=== PATIENT | female | born 1975 | race Caucasian/White ===

== ENCOUNTER 2022-09-11 10:28 | Outpatient (CLI) | payer BC, SELFPAY ==
--- NOTE | 2022-09-11 10:45 | CRLHL7_ITS ---
For Patients: As a result of the Century Cures Act, medical imaging exams and procedure reports are released immediately into your electronic medical record. You may view this report before your referring provider. If you have questions, please contact your health care provider. BILATERAL SCREENING MAMMOGRAM WITH COMPUTER-AIDED DETECTION AND TOMOSYNTHESIS TECHNIQUE: CC and MLO views were obtained. These mammographic images have been obtained using full-field digital technique. These mammographic images were interpreted with the benefit of computer-aided detection. Breast tomosynthesis was used in this interpretation. COMPARISON FILM: 09/23/20, 02/27/19, 06/21/17. FINDINGS: The breasts are extremely dense, which lowers the sensitivity of mammography. IMPRESSION: There is no radiographic evidence for malignancy. ASSESSMENT: BI-RADS Category 2: Benign RECOMMENDATION: Routine screening mammogram in 1 year. A lay language report of this examination will be provided to the patient. NICOLÁS REYNA M.D. Diagnostic Radiologist [email or web address] PRANAY/[email or web address] Transcribed: 09/11/2022, 5:[address]/Dictated by: Nicolás Reyna MD @ 09/11/2022 11:20:00 AM (Electronically Signed)
== END 2022-09-11 10:29 | disposition home or self-care (01) ==
LOC: MAMMO 10:29
PROVIDERS: PCP Physician Assistant Medical; Visit Provider Emergency Medicine
DX: Z12.31 Encounter for screening mammogram for malignant neoplasm of breast (principal); R92.2 Inconclusive mammogram
CPT/HCPCS: 77063; 77067

== ENCOUNTER 2023-07-25 07:45 | Outpatient (CLI) | payer BC, SELFPAY | END 2023-07-25 07:46 | disposition home or self-care (01) | LOC: NFLDREF 07-26 06:56 | PROVIDERS: PCP Physician Assistant Medical; Referring Provider Physician Assistant Medical; Visit Provider Physician Assistant Medical | DX: Z00.00 Encounter for general adult medical examination without abnormal findings (principal); Z13.9 Encounter for screening, unspecified; Z13.6 Encounter for screening for cardiovascular disorders; Z13.29 Encounter for screening for other suspected endocrine disorder | CPT/HCPCS: 80053; 80061; 84443 ==

== ENCOUNTER 2024-10-15 09:17 | Outpatient (CLI) | payer BC, SELFPAY ==
[2024-10-22 16:27] LABS: HPV Source Cervical/Vag; HPV, High Risk by TMA Not Detected
== END 2024-10-15 09:18 | disposition home or self-care (01) ==
PROVIDERS: PCP Physician Assistant Medical; Visit Provider Physician Assistant Medical
DX: Z12.4 Encounter for screening for malignant neoplasm of cervix (principal); Z11.51 Encounter for screening for human papillomavirus (HPV)
CPT/HCPCS: 87624; 87625; 88141; 88142

== ENCOUNTER 2024-12-08 07:16 | Outpatient (CLI) | payer BC, SELFPAY ==
--- OUTSIDE RECORDS SUMMARY | 2024-12-08 07:24 | XMS_ITS | Clinical Summary ---
Author Organization [facility] Address [address] [place] [address] Care Team Providers Care Business Services Vice President Name Role Phone No Contact, Pcp Primary Care Provider Unavailabl e Source Comments Patient records contain information from all sites at [facility]. For routine questions regarding patient records, call [phone] during business hours, M-F 8:00 AM - 5:00 PM Central Time. Record requests for emergency care only can be directed to [phone] at any time.[facility] Allergies Active Allergy Reactions Criticality Noted Date Comments Amoxicillin Rash 04/26/2017 Medications azithromycin (Zithromax) 500 mg tablet Take 1 tablet (500 mg total) by mouth daily as needed (traveler's diarrhea). Take for 1 to 3 days as needed. May stop if diarrhea stops 3 tablet 10/10/2023 5:06 PM CDT 10/09/2023 Active atovaquone-prog uaniL (Malarone) 250-100 mg per tablet Take 1 tablet by mouth daily. Take WITH food. Start 2 days before entering malaria endemic region ([facility]), while there & for 7 days after leaving. 12 tablet 10/10/2023 5:06 PM CDT 10/09/2023 Active Typhoid oral [address] capsule Take 1 capsule by mouth every other day. Take on an empty stomach with cool water. Keep refrigerated. Call if taking antibiotic. Finish 14 days before trip 4 capsule 10/10/2023 5:06 PM CDT 10/09/2023 Active metroNIDAZOLE (MetroCream) 0.75 % cream Apply to face at bedtime. 45 g 11 11/10/2024 3:48 PM CDT 08/13/2024 Active polyethylene glycol-electrol aniceto (Gisela) 236-22.74-6.74 -5.86 gram solution 240 mL orally every 10 minutes; until fecal effluent is clear 4000 mL 11/03/2024 Active Immunizations Immunization Administration Dates Next Due HepA Adult 10/09/2023 HepB Adult 07/11/1993,01/08/1993,12/08/1992 Influenza, Seasonal, Injectable 04/22/20 06,04/12/2005,04/11/2004,2001 MMR 06/19/1993,07/01/1978 SARS-COV-2 (COVID-19) - MODERNA(Discontinued) 05/12/2021 SARS-COV-2 (COVID-19) - PFIZ ER (Discontinued)(12 years or older) 07/04/2020,06/13/2020 SARS-COV-2 (COVID-19) - PFIZ ER BIVALENT TS(Discontinued)(12 YEARS OR OLDER) 03/27/2022 Td (Adult), adsorbed 06/19/1993 Tdap 04/26/2017,04/12/2005 Ty21a (oral) 10/09/2023 influenza trivalent vaccine (6 months and older)(PF) 03/19/2024,04/07/2013,03/27/2012,2010,04/12/2010,03/11/2009,05/04/2008,1 06/22/2006 influenza vaccine quad (FLUZONE/FLUARIX) (6 months and older)(PF) 03/18/2023,03/27/2022,03/22/2021,2019,03/17/2019,04/01/2018 Social History Tobacco Use Types Packs/Day Years Used Date Smoking Tobacco: Never [facility] Utilities Answer Date Recorded In the past 12 months has e [employer], gas, oil, or water [employer] threatened to shut off services in your home? No 10/07/2023 Hunger Vital Sign Answer Date Recorded Within the past 12 months, y ou worried that your food would run out before you got the money to buy more. Never true 10/07/19 24 Within the past 12 months, t he food you bought just didn't last and you didn't have money to get more. Never true 10/07/2023 PRAPARE - Transportation Answer Date Re corded In the past 12 months, has l ack of transportation kept you from medical appointments or from getting medications? No 09/09 In the past 12 months, has l ack of transportation kept you from meetings, work, or from getting things needed for daily living? No 10/07/2023 Housing Stability Answer Date Recorded What is your living situation today? [facility] a [facility] place to live 10/07/2023 Comments Unknown Sex and Gender Information Value Date Recorded Sex Assigned at Female 10/07/2023 9:56 PM CDT Legal Sex Female 11:13 PM [employer] Gender Identity Female 10/07/2023 9:56 PM CDT Sexual Orientation Straight 10/07/2023 9: 56 PM CDT Last Filed Vital Signs Vital Sign Reading Time Taken Comments Blood Pressure 102/68 04/23/2013 1:24 PM [employer] Pulse 70 04/23/2013 1:24 PM [employer] [employer] Temperature 36.4 C (97.5 F) 10/09/2023 10:43 AM CDT Respiratory Rate - - Oxygen Saturation - - Inhaled Oxygen Concentration - - Weight 52.8 kg (116 lb 6.5 oz) 04/23/2013 1:24 P M [employer] Height 159 cm (5' 2.6) 10/09/2023 10:43 AM CDT Body Mass Index 21.56 04/23/2013 1:24 PM [employer] [employer] Plan of Treatment Health Maintenance Due Date Last Done Comments CT Colonography 1977 Cologuard 1977 Colonoscopy 1977 Colorectal Cancer Screening 1977 FIT 1977 Hepatitis C Screening 1977 Mammogram 1977 Cervical/Vaginal Cancer Screening 04/12/2013 04/12/2010, 05/09/2007, 10/10/2004, Additional history exists Fasting Glucose for Diabetes Screening 04/21/2015 04/21/2012 Lipid (Cholesterol) Screening 04/21/2017 04/21/2012 COVID-19 Vaccine ( season) 2024 03/27/2022, 05/12/2021, 07/04/2020, Additional history exists Hepatitis A Vaccines (2 of 2 - Risk 2-dose series) 04/10/2024 10/09/2023 Depression Screening (Annual PHQ-2) 06/10/2024 DTaP,Tdap,and Td Vaccines (4 - Td or Tdap) 04/26/2027 04/26/2017, 04/12/2005, 06/19/1993 Hepatitis B Vaccines Completed 07/11/1993, 01/08/1993, 12/08/1992 HIV Screening Completed 05/25/2007 Influenza Vaccine Completed 03/19/2024, , 03/27/2022, Additional history exists IPV Vaccines Aged Out No longer eligi ble based on patient's age to complete this topic Pneumococcal vaccine (0-49 years) Aged Out No longer eligible based on patient's age to complete this topic Procedures Procedure Name Priority Date/Time Associated Diagnosis Comments GLUCOSE, FASTING, S/P Routine 04/21/2012 10:44 AM [facility] LIPID PANEL, S Routine 04/21/2012 10:[address] [facility] [address] SQL DEVELOPER CYTOLOGY Routine 04/12/2010 1:12 PM CDT from Last 3 Months or Most Recently Relevant to Health Maintenance Results * Lipid Panel (04/21/2012 10:44 AM [employer] [employer]) Cholesterol, HDL, S 63 SeeComment MG/DL [facility] Comment: Reference Range: NCEP guidelines (ages 18y and up) Low: <40 Normal: 40-59 High : > or =60 Calculated LDL 126 SeeComment MG/DL [facility] Comment: Reference Range: NCEP guidelines (ages 18y and up) Optimal: <100 Near Optimal: 100-129 Borderline high: 130-159 High: 160-189 Very high: > or =190 Cholesterol, Total 212 SeeComment MG/DL [facility] Comment: Reference Range: NCEP guidelines (ages 18y and up) Desirable: <200 Borderline high: 200-239 High: > or =240 Triglycerides 116 SeeComment MG/DL [facility] Comment: Reference Range: NCEP guidelines (ages 18y and up) Normal: <150 Borderline high: 150-199 High: 200-499 Very high: > or =500 Cholesterol, Non-HDL, Calculated 149 SeeComment MG/DL [facility] Comment: Reference Range: NCEP guidelines Desirable: <130 Borderline high: 130-159 High: 160-189 Very high: > or =190 04/21/2012 10:4 4 AM [facility] 04/21/2012 10:44 AM [facility] [employer] Rich Ramirez APRN.N.Jt., M.S.N. LAB BLOO D ADD-ON Final Result Performing Organization Address City/[facility]/ZIP Co de Phone Number [facility] [address] * Glucose, Fasting (04/21/2012 10:44 AM [facility]) Last Intake 14:43 [facility] Glucose, P 79 70 - 100 MG/DL [facility] 04/21/2012 10:4 4 AM [facility] 04/21/2012 10:44 AM [facility] [employer] Rich Ramirez APRN.N.P., M.S.N. LAB BLOO D NON ADD-ON Final Result Performing Organization Address City/[facility] Co de Phone Number [facility] [address] * Pathology PL SQL DEVELOPER Cytology (04/12/2010 1:12 PM CDT) 04/12/2010 1:12 PM CDT 04/12/2010 1:12 PM CDT Narrative [facility] - 04/12/2010 1:12 PM CDT 04/12/2010 Cytology Gynecological ([id number]) Requested By:Alexandra Darling, P.A. [phone] DIAGNOSIS: A. ThinPrep Pap Test Screen (Cervical/Endocervical HPV >= 30 years old): Satisfactory for evaluation. Negative for intraepithelial lesion or malignancy. HPV testing was performed by [employer] and is negative for HPV types 16,18,31,33,35,39,45,51,52,56,58,59 and 68. The HPV assay was performed in the Clinical Virology Laboratory at [facility]. This test was developed and its performance characteristics determined by [facility], [place], [place]. It has not been cleared or approved by the U.S. Food and Drug Administration. Screened at [facility] Cytology Analysis Office [address] [place], [place] [address] Report electronically signed by BROOK Martinez(ASCP) 04/19/2010 10:48 Interpreted by: TOM Llamas(ASC) SPECIMEN DESCRIPTION: A. ThinPrep Pap Test Screen (Cervical/Endocervical HPV >= 30 years old): Received cloudy specimen in ThinPrep vial. Procedure Note 09/04/2017 04/12/2010 Cytology Gynecological ([id number]) Requested By:Alexandra Darling, P.A. [phone] DIAGNOSIS: A. ThinPrep Pap Test Screen (Cervical/Endocervical HPV >= 30 years old): Satisfactory for evaluation. Negative for intraepithelial lesion or malignancy. HPV testing was performed by [employer] and is negative for HPV types 16,18,31,33,35,39,45,51,52,56,58,59 and 68. The HPV assay was performed in the Clinical Virology Laboratory at [facility]. This test was developed and its performance characteristics determined by [facility], [place], [place]. It has not been cleared or approved by the U.S. Food and Drug Administration. Screened at [facility] Cytology Analysis Office [address] [place] [id number] Report electronically signed by BROOK Martinez(ASCP) 04/19/2010 10:48 Interpreted by: TOM Llamas(ASCP) SPECIMEN DESCRIPTION: A. ThinPrep Pap Test Screen (Cervical/Endocervical HPV >= 30 years old): Received cloudy specimen in ThinPrep vial. us Alexandra Darling P.A.-C., M.S. LAB PAP COPATH ORDE RABLES Final Result [facility] [address] from Last 3 Months or Most Recently Relevant to Health Maintenance Insurance [facility] [[email or web address]] Care Teams Business Services Vice President Relationship Specialty Start Date End Date No Contact, Pcp PCP - General Family Medicine 06/13/20
--- NOTE | 2024-12-08 08:43 | P.ANES_ITS ---
Anesthesia Charges Start Date/Time Anesthesia Start Date: 12/08/24 Anesthesia Start Time: 08:21 Stop Date/Time Anesthesia Stop Date: 12/08/24 Anesthesia Stop Time: 08:41 Coding CPT Codes CPT Codes: JOEY LWR INTST NDID NOS - 96158 ([id number]) P1 - NORMAL HEALTHY PATIENT, QX - NEEDLE LOOM SETTER SVRich W/ MED DIRECTION, QK - FRUIT AND VEGETABLE CLASSER 2-4 CNCRNT JOEY PROC
--- NOTE | 2024-12-08 08:43 | W.ANESCHARGE ---
Anesthesia Charges Start Date/Time Anesthesia Start Date: 12/08/24 Anesthesia Start Time: 08:21 Stop Date/Time Anesthesia Stop Date: 12/08/24 Anesthesia Stop Time: 08:41 Coding CPT Codes CPT Codes: JOEY LWR INTST NDCA NOS - 34956 ([id number]) P1 - NORMAL HEALTHY PATIENT, QX - GLASS FURNACE TENDER SVRich W/ MED DIRECTION, QK - SLATE SPLITTING SUPERVISOR 2-4 CNCRNT JOEY PROC
--- NOTE | 2024-12-08 09:00 | P.ANES_ITS ---
Anesthesia Charges Start Date/Time Anesthesia Start Date: 12/08/24 Anesthesia Start Time: 08:21 Stop Date/Time Anesthesia Stop Date: 12/08/24 Anesthesia Stop Time: 08:41 Coding CPT Codes CPT Codes: JOEY LWR INTST NDNC NOS - 65153 ([id number]) P1 - NORMAL HEALTHY PATIENT, QK - FRENCH COMBER 2-4 CNCRNT ANES PROC, QX - SECOND FLOOR OPERATOR SVC W/ MED DIRECTION
--- NOTE | 2024-12-08 09:00 | W.ANESCHARGE ---
Anesthesia Charges Start Date/Time Anesthesia Start Date: 12/08/24 Anesthesia Start Time: 08:21 Stop Date/Time Anesthesia Stop Date: 12/08/24 Anesthesia Stop Time: 08:41 Coding CPT Codes CPT Codes: JOEY LWR INTST NDNM NOS - 39137 ([id number]) P1 - NORMAL HEALTHY PATIENT, QK - SKI PRODUCTION SUPERVISOR 2-4 CNCRNT ANES PROC, QX - BILLET CHECKER SVC W/ MED DIRECTION
--- OUTSIDE RECORDS SUMMARY | 2024-12-09 00:37 | XMS_ITS | Clinical Summary ---
Author Organization [facility] Address [address] [place] [address] Care Team Providers Care Ict Systems Test Engineer Name Role Phone No Contact, Pcp Primary Care Provider Unavailabl e Source Comments Patient records contain information from all sites at [facility]. For routine questions regarding patient records, call [phone] during business hours, M-F 8:00 AM - 5:00 PM Central Time. Record requests for emergency care only can be directed to [phone] at any time.[facility] Allergies Active Allergy Reactions Criticality Noted Date [...] 2 days before entering malaria endemic region ([facility]), while there & for 7 days [...] Packs/Day Years Used Date Smoking Tobacco: Never [facility] Utilities Answer Date Recorded In the past 12 months has e [employer] gas, oil, or water [employer] threatened to shut off services in your [...] your living situation today? I have a [facility] place to live 10/07/2023 Comments Unknown Sex and Gender Information Value Date Recorded Sex Assigned at Female 10/07/2023 9:56 PM CDT Legal Sex Female 11:13 PM CRM MARKETING SPECIALIST Gender Identity Female 10/07/2023 9:56 PM CDT Sexual Orientation Straight 10/07/2023 9: 56 PM CDT Last Filed Vital Signs Vital Sign Reading Time Taken Comments Blood Pressure 102/68 04/23/2013 1:24 PM CRM MARKETING SPECIALIST Pulse 70 04/23/2013 1:24 PM CRM MARKETING SPECIALIST Temperature 36.4 C (97.5 F) 10/09/2023 10:43 AM CDT Respiratory Rate - - Oxygen Saturation - - Inhaled Oxygen Concentration - - Weight 52.8 kg (116 lb 6.5 oz) 04/23/2013 1:24 P M CRM MARKETING SPECIALIST Height 159 cm (5' 2.6) 10/09/2023 10:43 AM CDT Body Mass Index 21.56 04/23/2013 1:24 PM CRM MARKETING SPECIALIST Plan of Treatment Health Maintenance Due Date [...] 04/10/2024 10/09/2023 Depression Screening (Annual PHQ-2) 06/10/2024 Influenza Vaccine (#1) 2025 , 03/18/2023, 03/27/2022, Additional history exists DTaP,Tdap,and Td Vaccines (4 - Td or Tdap) 04/26/2027 04/26/2017, 04/12/2005, 06/19/1993 Hepatitis B Vaccines Completed 07/11/1993, 01/08/1993, 12/08/1992 HIV Screening Completed 05/25/2007 IPV Vaccines Aged Out No longer eligi ble based on patient's age to complete this topic Pneumococcal vaccine (0-49 years) Aged Out No longer eligible based on patient's age to complete this topic Procedures Procedure Name Priority Date/Time Associated Diagnosis Comments GLUCOSE, FASTING, S/P Routine 04/21/2012 10:44 AM CRM MARKETING SPECIALIST LIPID PANEL, S Routine 04/21/2012 10:44 AM CRM MARK[employer]IST PATHOLOGY FURNACE OPERATOR OIL OR GAS CYTOLOGY Routine 04/12/2010 1:12 PM CDT from Last 3 Months or Most Recently Relevant to Health Maintenance Results * Lipid Panel (04/21/2012 10:44 AM CRM MARKETING SPECIALIST) Cholesterol, HDL, S 63 SeeComment MG/DL [facility] Comment: Reference Range: NCEP guidelines (ages 18y and up) Low: <40 Normal: 40-59 High : > or =60 Calculated LDL 126 SeeComment MG/DL [facility] Comment: Reference Range: NCEP guidelines (ages 18y and up) Optimal: <100 Near Optimal: 100-129 Borderline high: 130-159 High: 160-189 Very high: > or =190 Cholesterol, Total 212 SeeComment MG/DL [facility] Comment: Reference Range: NCEP guidelines (ages 18y and up) Desirable: <200 Borderline high: 200-239 High: > or =240 Triglycerides 116 SeeComment MG/DL [facility] Comment: Reference Range: NCEP guidelines (ages 18y and up) Normal: <150 Borderline high: 150-199 High: 200-499 Very high: > or =500 Cholesterol, Non-HDL, Calculated 149 SeeComment MG/DL [facility] Comment: Reference Range: NCEP guidelines Desirable: <130 Borderline high: 130-159 High: 160-189 Very high: > or =190 04/21/2012 10:4 4 AM CRM MARKETING SPECIALIST 04/21/2012 10:44 AM CRM MARKETING SPECIALIST Rich Ramirez APRN.N.P., M.S.N. LAB BLOO D ADD-ON Final Result Performing Organization Address City/[facility]/ZIP Co de Phone Number [facility] [address] * Glucose, Fasting (04/21/2012 10:44 AM CRM MARKETING SPECIALIST) [facility] 14:[address] [facility] Glucose, P 79 70 - 100 MG/DL [facility] 04/21/2012 10:4 4 AM CRM MARKETING SPECIALIST 04/21/2012 10:44 AM CRM MARKETING SPECIALIST Rich Ramirez APRN.N.P., M.S.N. LAB BLOO D NON ADD-ON Final Result Performing Organization Address City/[facility]/ZIP Co de Phone Number [address] * Pathology FURNACE OPERATOR OIL OR GAS Cytology (04/12/2010 1:12 PM CDT) 04/12/2010 1:12 PM CDT 04/12/2010 1:12 PM CDT Narrative [facility] - 04/12/2010 1:12 PM CDT 04/12/2010 Cytology Gynecological ([id number]) Requested By:Alexandra Darling, P.A. [phone] DIAGNOSIS: A. ThinPrep Pap Test Screen (Cervical/Endocervical HPV >= 30 years old): Satisfactory for evaluation. Negative for intraepithelial lesion or malignancy. HPV testing was performed by [employer] and is negative for HPV types 16,18,31,33,35,39,45,51,52,56,58,59 and 68. The HPV assay was performed in the Clinical Virology Laboratory at [facility]. This test was developed and its performance characteristics determined by [facility], [place]. It has not been cleared or approved by the U.S. Food and Drug Administration. Screened at [facility] Cytology Analysis Office [address] [place], [place] [address] Report electronically signed by BROOK Martinez(ASCP) 04/19/2010 10:48 Interpreted by: TOM Llamas(ASCP) SPECIMEN DESCRIPTION: A. ThinPrep Pap Test Screen (Cervical/Endocervical HPV >= 30 years old): Received cloudy specimen in ThinPrep vial. Procedure Note 09/04/2017 04/12/2010 Cytology Gynecological ([id number]) Requested By:Alexandra Darling, P.A. [phone] DIAGNOSIS: A. ThinPrep Pap Test Screen (Cervical/Endocervical HPV >= 30 years old): Satisfactory for evaluation. Negative for intraepithelial lesion or malignancy. HPV testing was performed by [employer] and is negative for HPV types 16,18,31,33,35,39,45,51,52,56,58,59 and 68. The HPV assay was performed in the Clinical Virology Laboratory at [facility]. This test was developed and its performance characteristics determined by [facility], [place]. It has not been cleared or approved by the U.S. Food and Drug Administration. Screened at [facility] Cytology Analysis Office [address] [place] [id number] Report electronically signed by BROOK Martinez(ASCP) 04/19/2010 10:48 Interpreted by: TOM Llamas(ASCP) SPECIMEN DESCRIPTION: A. ThinPrep Pap Test Screen (Cervical/Endocervical HPV >= 30 years old): Received cloudy specimen in ThinPrep vial. us Alexandraever Draling P.A.-C., M.S. LAB PAP PADMA LAZO Final Result [facility] [address] [place] [address], [facility] from Last 3 Months or Most Recently Relevant to Health Maintenance Insurance [facility] Care Teams Ict Systems Test Engineer Relationship Specialty Start Date End Date No Contact, Pcp PCP - General Family Medicine 06/13/20
== END 2024-12-08 07:17 | disposition home or self-care (01) ==
PROVIDERS: PCP Physician Assistant Medical; Visit Provider Surgery
DX: Z12.11 Encounter for screening for malignant neoplasm of colon (principal); R19.5 Other fecal abnormalities; D12.8 Benign neoplasm of rectum; K64.8 Other hemorrhoids
CPT/HCPCS: 00811; 00812; 45385; J2704

== ENCOUNTER 2025-03-11 14:43 | Outpatient (CLI) | payer BC, SELFPAY ==
--- NOTE | 2025-03-11 15:00 | CRLHL7_ITS ---
For Patients: As a result of the Century Cures Act, medical imaging exams and procedure reports are released immediately into your electronic medical record. You may view this report before your referring provider. If you have questions, please contact your health care provider. INDICATION: BILATERAL SCREENING MAMMOGRAM, ASYMPTOMATIC 50 Y/O FEMALE COMPARISON: 09/30/2022, 09/23/2020, 02/27/2019 TECHNIQUE: Digital mammogram in CC and MLO projections including computer-aided detection (CAD) and tomosynthesis. BREAST COMPOSITION: The breasts are extremely dense, which lowers the sensitivity of mammography. FINDINGS: No suspicious findings. ASSESSMENT: BI-RADS 2 Benign RECOMMENDATION: Annual screening mammogram. A lay language report of this examination will be provided to the patient. Dictated by: Nicolás Menjivar MD @ 03/12/2025 09:57:35 (Electronically Signed)
== END 2025-03-11 14:44 | disposition home or self-care (01) ==
LOC: MAMMO 14:44
PROVIDERS: PCP Physician Assistant Medical; Visit Provider Physician Assistant Medical
DX: Z12.31 Encounter for screening mammogram for malignant neoplasm of breast (principal); R92.343 Mammographic extreme density, bilateral breasts
CPT/HCPCS: 77063; 77067